=== PATIENT | female | born 1995 | race American Indian/Alaskan Native ===

== ENCOUNTER 2021-07-08 23:45 | Emergency (ER) | payer SELFPAY ==
[2021-07-08 23:50] VITALS: BP 153/84
--- NOTE | 2021-07-09 03:40 | Emergency Department Report ---
ED ENT HPI - General Chief complaint: Neck Pain/Injury Stated complaint: SWOLLEN LYMPH NODES Time Seen by Provider: 07/09/21 03:31 Source: patient Mode of arrival: Ambulatory Limitations: No Limitations - History of Present Illness Initial comments: 26-year-old female elevated BMI was currently sleeping on the couch from our mattress reports since making the move she is noted some pain to her left and right neck which is progressively worsening to the point she is having pain with swallowing and what she feels are her her lymph nodes been swollen and tender since the onset of the symptoms as well. Pain is dull and throbbing no fevers, chills, sweats. No hemoptysis no hematemesis no hematochezia, no chest pain, palpitations Location: tooth # Severity: mild Quality: dull Consistency: constant Worsens with: none Associated Symptoms: pain with swallowing, sore throat - Related Data Previous Rx's Medication Instructions Recorded Last Taken Type Amoxicillin/Potassium Clav 1 each PO BID #20 tablet 07/09/21 Unknown Rx [Augmentin 875-125 Tablet] ED Dental HPI - General Chief complaint: Neck Pain/Injury Stated complaint: SWOLLEN LYMPH NODES Time Seen by Provider: 07/09/21 03:31 Source: patient Mode of arrival: Ambulatory Limitations: No Limitations - Related Data Previous Rx's Medication Instructions Recorded Last Taken Type Amoxicillin/Potassium Clav 1 each PO BID #20 tablet 07/09/21 Unknown Rx [Augmentin 875-125 Tablet] ED Review of Systems ROS: Stated complaint: SWOLLEN LYMPH NODES Other details as noted in HPI Comment: All other systems reviewed and negative ED Past Medical Hx - Past Medical History Previous Medical History?: Yes Hx Asthma: Yes - Surgical History Past Surgical History?: No - Medications Home Medications: Home Medications Medication Instructions Recorded Confirmed Last Taken Type Amoxicillin/Potassium Clav 1 each PO BID #20 tablet 07/09/21 Unknown Rx [Augmentin 875-125 Tablet] ED Physical Exam - General Limitations: No Limitations General appearance: alert, in no apparent distress - Head Head exam: Present: atraumatic, normocephalic - Eye Eye exam: Present: normal appearance, PERRL, EOMI Pupils: Present: normal accommodation - ENT ENT exam: Present: mucous membranes moist, other (Pharynx has some erythema mild swelling no evidence of any peritonsillar) - Neck Neck exam: Present: normal inspection, full ROM, lymphadenopathy (Mild tonsillar) - Respiratory Respiratory exam: Present: normal lung sounds bilaterally. Absent: respiratory distress, wheezes, rales, accessory muscle use, decreased breath sounds - Cardiovascular Cardiovascular Exam: Present: regular rate, normal rhythm. Absent: systolic murmur, diastolic murmur, rubs, gallop - GI/Abdominal GI/Abdominal exam: Present: soft, normal bowel sounds - Extremities Exam Extremities exam: Present: normal inspection, normal capillary refill - Back Exam Back exam: Present: normal inspection. Absent: CVA tenderness (R), CVA tenderness (L) - Neurological Exam Neurological exam: Present: alert, oriented X3, CN II-XII intact, normal gait - Psychiatric Psychiatric exam: Present: normal affect, normal mood. Absent: flat affect, manic, suicidal ideation - Skin Skin exam: Present: warm, dry, intact, normal color. Absent: rash, diaphoretic, erythema, urticaria, pallor, abrasion, ecchymosis ED Course Vital Signs 07/08/21 23:48 Temperature 98.0 F Pulse Rate 88 Respiratory 18 Rate Blood Pressure 153/84 O2 Sat by Pulse 100 Oximetry Critical care attestation.: If time is entered above; I have spent that time in minutes in the direct care of this critically ill patient, excluding procedure time. ED Disposition Clinical Impression: Pharyngitis Disposition: 01 HOME / SELF CARE / HOMELESS Is pt being admited?: No Does the pt Need Aspirin: No Condition: Stable Instructions: Sore Throat, [id number], Pharyngitis Prescriptions: Amoxicillin/Potassium Clav [Augmentin 875-125 Tablet] 1 each PO BID #20 tablet Referrals: PRIMARY CARE, [Primary Care Provider] - 3-5 Days
[2021-07-09] MEDS ORDERED: dexAMETHasone 4 MG/ML VIAL PO NR (04:30)
== END 2021-07-09 04:25 | disposition home or self-care (01) ==
LOC: ED 23:45
DX: J02.9 Acute pharyngitis, unspecified (principal)
CPT/HCPCS: 99282; J1100

== ENCOUNTER 2022-01-15 09:02 | Emergency (ER) | payer SELFPAY ==
[2022-01-15 09:20] VITALS: BP 127/77
== END 2022-01-16 07:38 | disposition left against medical advice (07) ==
LOC: ED 09:02
DX: T78.40XA Allergy, unspecified, initial encounter (principal); Z53.21 Procedure and treatment not carried out due to patient leaving prior to being seen by health care provider; X58.XXXA Exposure to other specified factors, initial encounter